=== PATIENT | female | born 2000 | race Caucasian/White ===

== ENCOUNTER 2023-04-20 22:43 | Emergency (ER) | payer BC ==
[~2023-04-20] VITALS: Ht 162.6 cm; Wt 79.4 kg
[2023-04-20 22:55] VITALS: BP_SYST 119; BP_DIAS 8; BP_DIAS 80
--- NOTE | 2023-04-20 23:00 | NUR ---
DR. GUO EXAMINED THE PATIENT
--- NOTE | 2023-04-20 23:00 | NUR ---
PT PUT ON BED 1
--- NOTE | 2023-04-20 23:05 | NUR ---
PT. A/OX4. CHEST RISING AND FALL SYMMETRICAL. NO S/S OF PAIN. NOT IN DISTRESS. ATTACHED TO MONITOR. PT STATED " I PASSED OUT 30 MINS AGO". NO HEMATOMA OR BRUISE NOTED. Addendum: 04/21/23 at 0012 by [email or web address] PT. A/OX4. CHEST RISING AND FALL SYMMETRICAL. WITH PAIN AT LOWER CHEST WITH A SCALE OF "8/10" NOT IN DISTRESS. ATTACHED TO MONITOR. PT STATED " I PASSED OUT 30 MINS AGO". NO HEMATOMA OR BRUISE NOTED.
[2023-04-20] MEDS ORDERED: KETOROLAC 15 MG/ML VIAL IVP ONE (23:10)
[2023-04-20 23:33] LABS: BASOPHILS % (AUTO) 0.3 % (0.0-2.0); EOSINOPHILS % (AUTO) 0.2 % (0.0-4.0); HEMATOCRIT 41.1 % (36-48); HEMOGLOBIN 13.7 g/dL (12.0-16.0); LYMPHOCYTES # (AUTO) 1.9 K/uL (2.5-16.5); MEAN CORPUSCULAR HEMOGLOBIN 29 pg (27-31); MEAN CORPUSCULAR HGB CONC 33 g/dL (33-37); MONOCYTES # (AUTO) 0.6 K/uL (0.8-1.0); NEUTROPHILS % (AUTO) 75.5 % (42.2-75.2); PLATELET COUNT (AUTO) 256 K/uL (140-450); RED BLOOD CELL COUNT(AUTO) 4.72 MIL/uL (4.20-5.40); RED CELL DISTRIBUTION WIDTH 13.5 % (11.6-13.7); WHITE BLOOD COUNT (AUTO) 10.6 K/uL (4.8-10.8)
--- NOTE | 2023-04-20 23:37 | NUR ---
PT. IS UNABLE TO PROVIDE URINE OF THE MOMENT. PROVIDED SPECIMEN CONTAINER.
[2023-04-20 23:47] LABS: ALBUMIN 3.9 g/dL (3.4-5.0); ANION GAP 11.8 (8-16); ASPARTATE AMINOTRANSFERASE 17 U/L (15-37); CARBON DIOXIDE 29.9 mmol/L (21-32); CHLORIDE 102 mmol/L (98-107); CREATININE 0.8 mg/dL (0.6-1.3); GFR ARICAN-AMERICAN 114 mL/min (>90); GLUCOSE 93 mg/dL (74-106); POTASSIUM 3.7 mmol/L (3.5-5.1); SODIUM SERUM 140 mmol/L (136-145); TOTAL BILIRUBIN 0.4 mg/dL (0.0-1.0); UREA NITROGEN, BLOOD 16 mg/dL (7-18)
--- NOTE | 2023-04-20 23:55 | NUR ---
PT. MOVED TO BED 02.
[2023-04-21 00:13] LABS: BARBITURATE, URINE NEGATIVE ng/ml (NEG <=200); BENZODIAZEPINE, URINE NEGATIVE ng/mL (NEG <=200); CANNABINOID, URINE NEGATIVE ng/mL (NEG <=50); COCAINE, URINE NEGATIVE ng/mL (NEG <=300); OPIATE, URINE NEGATIVE ng/mL (NEG <=2000); PHENCYCLIDINE SCREEN,URINE NEGATIVE ng/mL (NEG <=25)
--- NOTE | 2023-04-21 00:20 | NUR ---
DR. GUO EXAINED THE PATIENT Addendum: 04/21/23 at [email or web address] GUO EXAMINED THE PATIENT
[2023-04-21] MEDS ORDERED: NAPR-54 PO (00:45)
--- NOTE | 2023-04-21 00:46 | NUR ---
Patient resting in bed, A/Ox4, chest rise and fall symmetrical, no s/s of distress, on monitor
[2023-04-21 00:50] VITALS: BP 114/78
== END 2023-04-21 00:57 | disposition home or self-care (01) ==
LOC: MED 22:43
DX: R06.00 Dyspnea, unspecified (principal); R07.9 Chest pain, unspecified; J45.909 Unspecified asthma, uncomplicated; Z79.899 Other long term (current) drug therapy
CPT/HCPCS: 36415; 71045; 80053; 80305; 81025; 84484; 85025; 85379; 93005; 96374; 99285; J1885; Q0092